=== PATIENT | male | born 1955 | race Caucasian/White ===

== ENCOUNTER → 2017-01-24 | Outpatient (CLI) | payer BC, OTHER ==
[~2017-01-24] MED LIST: ASPI-621 PO; BUPR300T49 PO; GABA100C PO; HYDR-3240 PO; METO25TA35 PO; MULT1TAB60 PO; OMEP20TA62 PO; SIMV20TA3 PO
== END | disposition home or self-care (01) ==
LOC: CARD 08:58
PROVIDERS: ATTEND Family Medicine
DX: I10 Essential (primary) hypertension (principal); E78.5 Hyperlipidemia, unspecified; K21.9 Gastro-esophageal reflux disease without esophagitis; Z87.891 Personal history of nicotine dependence; Z82.49 Family history of ischemic heart disease and other diseases of the circulatory system
CPT/HCPCS: 93017

== ENCOUNTER 2017-02-06 08:24 | Day surgery (SDC) | payer BC ==
[2017-02-05 14:18] VITALS: BP 142/92
[2017-02-05 14:58] LABS: BLOOD UREA NITROGEN 10 mg/dL (7-18)
[2017-02-05 15:01] LABS: ASPARTATE AMINO TRANSFERASE 28 U/L (15-37)
[2017-02-05 15:26] LABS: DIFF TOTAL CELLS COUNTED 100 CELL DIFF
[2017-02-05 15:29] LABS: VERIFY COUNTS? YES
[2017-02-05 15:30] LABS: GIANT PLATELETS 1+; LARGE PLATELETS 1+
[~2017-02-06] VITALS: Ht 175.3 cm; Wt 88.6 kg
[2017-02-06] MEDS ORDERED: ASPIRIN 325 MG TABLET EC PO ONE (09:00)
[2017-02-06] MEDS ORDERED: ACETAMINOPHEN 325 MG TABLET PO PRN (09:00)
[2017-02-06] MEDS ORDERED: ONDANSETRON 2MG/ML, 2ML IVPush PRN (09:00)
[2017-02-06] MEDS ORDERED: BISACODYL 10 MG SUPP PR PRN (09:00)
[2017-02-06] MEDS ORDERED: ZOLPIDEM 5MG TABLET PO PRN (09:00)
[2017-02-06] MEDS ORDERED: BISACODYL 5 MG EC TABLET PO PRN (09:00)
[2017-02-06] MEDS ORDERED: ASPIRIN 325 MG TABLET EC ONE (09:18)
[2017-02-06] MEDS ORDERED: LIDOCAINE 2%, 20ML ONE (11:46)
[2017-02-06] MEDS ORDERED: MIDAZOLAM 1 MG/ML, 5ML ONE (11:46)
[2017-02-06] MEDS ORDERED: FENTANYL PF 100 MCG/2ML ONE (11:46)
[2017-02-06] MEDS ORDERED: SODIUM CHLORIDE 0.9% 500 ML IV SCH (13:30)
== END 2017-02-06 16:26 ==
LOC: CACL 08:24
PROVIDERS: ATTEND Internal Medicine Cardiovascular Disease
DX: I25.118 Atherosclerotic heart disease of native coronary artery with other forms of angina pectoris (principal); I10 Essential (primary) hypertension; E78.5 Hyperlipidemia, unspecified; K21.9 Gastro-esophageal reflux disease without esophagitis; I34.0 Nonrheumatic mitral (valve) insufficiency; I51.7 Cardiomegaly; D69.6 Thrombocytopenia, unspecified; Z87.891 Personal history of nicotine dependence; Z82.49 Family history of ischemic heart disease and other diseases of the circulatory system
CPT/HCPCS: 36415; 71020; 80053; 85025; 85610; 85730; 93306; 93458; 99156; 99157; C1894; J2250; J3010; J3490; Q9967